=== PATIENT | male | born 1965 | race Hispanic/Latino ===

== ENCOUNTER → 2018-10-13 | Outpatient (CLI) | payer OTHER ==
[~2018-10-13] MED LIST: LIPITOR10 MG PO; NORCO 10-325 T1 EACH PO; OMEGA-31000 MG PO; RAPAFLO8 MG PO; VESICARE5 MG PO
--- NOTE | 2018-10-13 14:12 | Diagnostic Imaging Report ---
EXAM: CT Abdomen and Pelvis WITHOUT intravenous contrast INDICATION: Renal calculi COMPARISON: [facility] of 11/09/2012 TECHNIQUE: Abdomen and pelvis were scanned utilizing a multidetector helical scanner from the lung base to the pubic symphysis without administration of IV contrast. Coronal and sagittal reformations were obtained. IV CONTRAST: None ORAL CONTRAST: None COMPLICATIONS: None RADIATION DOSE: Total DLP: 835.6 mGy*cm Dose modulation, iterative reconstruction, and/or weight based adjustment of the mA/kV was utilized to reduce the radiation dose to as low as reasonably achievable. FINDINGS: LOWER THORAX: No focal lung base consolidation. The heart is not enlarged. HEPATOBILIARY: No solid mass lesions. The gallbladder appears unremarkable. SPLEEN: No splenomegaly. PANCREAS: No focal masses or ductal dilatation. ADRENALS: No adrenal nodules. KIDNEYS/URETERS: 6.3 mm left lower pole nonobstructive renal calculus. No hydronephrosis. No other renal or ureteral calculi identified. PELVIC ORGANS/BLADDER: No bladder calculi. PERITONEUM / RETROPERITONEUM: No free air or fluid. LYMPH NODES: No lymphadenopathy. VESSELS: Minimal atherosclerotic calcifications of the abdominal aorta. GI TRACT: Mild sigmoid colonic diverticulosis. No CT evidence of diverticulitis. No abnormal bowel wall thickening or bowel obstruction. Normal appendix. BONES AND SOFT TISSUES: No acute osseous injury. Mild degenerative changes of the lower lumbar spine. 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 IMPRESSION: Left lower pole nonobstructive 6.3 mm renal calculus. No hydronephrosis. Signed by: Eugene Benz MD on 10/13/2018 2:09 PM
== END ==
LOC: CT 13:20
PROVIDERS: ATTEND Urology
DX: N20.0 Calculus of kidney (principal)
CPT/HCPCS: 74176

== ENCOUNTER → 2018-10-24 | Day surgery (SDC) | payer OTHER ==
--- NOTE | 2018-10-23 15:22 | Diagnostic Imaging Report ---
Exam: [facility]UB - 2 views Clinical History: Renal calculi, preoperative Comparison: Abdomen and pelvis CT of 10/13/2018 Findings: 6 mm calcific density overlying the lower pole of left kidney corresponds with left lower pole renal calculus seen on the CT of 10/13/2018. No new radiograph with apparent renal calculi. Nonobstructive bowel gas pattern. No free air. Osseous structures appear unremarkable. Impression: 6 mm left lower pole renal calculus. Signed by: Eugene Benz MD on 10/23/2018 3:19 PM
[~2018-10-24] MED LIST changes: +ACETAMINOPHEN/CODEINE 300MG - 30MG TAB ONE; +CEFTRIAXONE SOD 1 GM/NS 50 ML 50 ML IV ONE; +DEXAMETHASONE SOD PHOS INJ 4 MG/ML VIAL ONE; +FENTANYL CITRATE/PF 100MCG/2 ML INJ ONE; +LIDOCAINE HCL 2% LOCAL INJ 5 ML SDV VIAL INJ ONE; +MIDAZOLAM HCL 2 MG/2 ML VIAL ONE; +ONDANSETRON HCL INJ 2MG/ML 2ML 2 MG/ML VIAL ONE; +PROPOFOL IV EMULSION 10 MG/ML 20 ML VIAL ONE; +SEVOFLURANE INHAL SOLN 250 ML PEN BTL ONE
--- OUTSIDE RECORDS SUMMARY | 2018-10-24 05:12 | XMS REPORT ---
Author Author [facility] Address Unknown Phone Unavailable Care Team Providers Care Implementation Project Coordinator Name Role Phone XIN MCDOWELL Unavailable Unavailable Problems This patient has no known problems. Allergies, Adverse Reactions, Alerts This patient has no known allergies or adverse reactions. Medications This patient has no known medications. Results Test Description Test Time Test Comments Text Results Atomic Results Result Comments ABDOMEN-1VIEW ([facility]) 2018-10-23 15:17:00 [place] [address] Patient Name: ROLANDO PUGH JR MR #: [id number] : 1965 Age/Sex: 52/M Req #: [id number] Adm Physician: Ordered by: XIN MCDOWELL MD Report #: [id number] Location: OR Room/Bed: Procedure: [id number] DX/ABDOMEN-1VIEW ([facility]) Exam Date: 10/23/18 Exam Time: 1414 REPORT STATUS: Signed Exam: KUB - 2 views Clinical History: Renal albin culi, preoperative Comparison: Abdomen and pelvis CT of 10/13/2018 Findings: 6 mm calcific density overlying the lower pole of left kidney corresponds with left lower pole renal calculus seen on the CT of 10/13/2018. No new radiograph with apparent renal calculi. Nonobstructive bowel gas pattern. No free air. Osseous structures appear unremarkable. Impression: 6 mm left lower pole renal calculus. Signed by: Juan Pablo Benz MD on 10/23/2018 3:19 PM Dictated By: JUAN PABLO BENZ MD 18 Transcribed By: BRIDGETTE on 10/23/181518 COPY TO: XIN MCDOWELL MD CT ABDOMEN/PELVIS WO 2018-10-13 14:04:00 [place] [id number] Patient Name: ROLANDO PUGH JR MR #: [id number] : 1965 Age/Sex: 52/M Req #: [id number] Adm Physician: Ordered by: XIN MCDOWLEL MD Report #: [id number] Location: CT Room/Bed: Procedure: [id number] CT/CT ABDOMEN/PELVIS WO Exam Date: 10/13/18 Exam Time: 1342 REPORT STATUS: Signed EXAM: CT Abdomen and Pelvis WITHOUT intravenous con trast INDICATION: Renal calculi COMPARISON: [facility] of 11/09/2012 TECHNIQUE: Abdomen and pelvis were scanned utilizing a multidetector helical scanner from the lung base to the pubic symphysis without administration of IV contrast. Coronal and sagittal reformations were obtained. IV CONTRAST: None ORAL CONTRAST: None COMPLICATIONS: None RADIATION DOSE: Total DLP: 835.6 mGy*cm Dose modulation, iterative reconstruction, and/or weight based adjustment of the mA/kV was utilized to reduce the radiation dose to as low as reasonably achievable. FINDINGS: LOWER THORAX: No focal lung base consolidation. The heart is not enlarged. HEPATOBILIARY: No solid mass lesions. The gallbladder appears unremarkable. SPLEEN: No splenomegaly. PANCREAS: No focal masses or ductal dilatation. ADRENALS: No adrenal nodules. KIDNEYS/URETERS: 6.3 mm left lower pole nonobstructive renal calculus. No hydronephrosis. No other renal or ureteral calculi identified. PELVIC ORGANS/BLADDER: No bladder calculi. PERITONEUM / RETROPERITONEUM: No free air or fluid. LYMPH NODES: No lymphadenopathy. VESSELS: Minimal atherosclerotic calcifications of the abdominal aorta. GI TRACT: Mild sigmoid colonic diverticulosis. No CT evidence of diverticulitis. No abnormal bowel wall thickening or bowel obstruction. Normal appendix. BONES AND SOFT TISSUES: No acute osseous injury. Mild degenerative changes of the lower lumbar spine. 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 IMPRESSION: Left lower pole nonobstructive 6.3 mm renal calculus. No hydronephrosis. Signed by: Juan Pablo Benz MD on 10/13/2018 2:09 PM Dictated By: JUAN PABLO BENZ MD 1409 Transcribed By: BRIDGETTE on 10/13/18 1402 COPY TO: XIN MCDOWELL MD
[2018-10-24 08:45] VITALS: BP 120/68
--- NOTE | 2018-10-26 18:27 | Operative Report ---
DATE OF PROCEDURE: 10/24/2018 SURGEON: Kole Castañeda MD PREOPERATIVE DIAGNOSIS: Left kidney stone. POSTOPERATIVE DIAGNOSIS: Left kidney stone. PROCEDURES: 1. Staged shock wave lithotripsy, left side. 2. Supervision of fluoroscopy. ANESTHESIA: General. ESTIMATED BLOOD LOSS: Minimal. COMPLICATIONS: None. INDICATIONS: Mr. Dupree is a 52-year-old male with a history of intermittently symptomatic left-sided kidney stone. He and I had a long discussion about alternatives, risks, and benefits of doing nothing, shock wave lithotripsy, ureteroscopy, percutaneous surgery, or open surgery. He voiced understanding of the options, alternatives, risks, and benefits, and elected to proceed. PROCEDURE IN DETAIL: After informed consent was obtained, the patient was taken to the operative suite, placed supine on the operative table, underwent general anesthesia by Anesthesia Service. A time-out was taken. Site was confirmed. Stone was localized in the X, Y and Z planes. Treatment was performed per the treatment report. The patient tolerated the procedure well and was transferred to the recovery room in excellent condition. Supervision of fluoroscopy: I was present for the entire procedure and supervised fluoroscopy. There was no radiologist present. Dosages per treatment report. Kole Castañeda MD ES/MODL /[id number] cc: Darren Weber MD
== END | disposition home or self-care (01) ==
LOC: OR 05:02
PROVIDERS: ATTEND Urology
DX: N20.0 Calculus of kidney (principal); N13.39 Other hydronephrosis; N20.1 Calculus of ureter; N40.1 Benign prostatic hyperplasia with lower urinary tract symptoms; R35.1 Nocturia; E29.1 Testicular hypofunction; G47.33 Obstructive sleep apnea (adult) (pediatric); I10 Essential (primary) hypertension; Z88.1 Allergy status to other antibiotic agents; F17.210 Nicotine dependence, cigarettes, uncomplicated; Z01.810 Encounter for preprocedural cardiovascular examination; Z68.41 Body mass index [BMI] 40.0-44.9, adult; Z84.1 Family history of disorders of kidney and ureter
CPT/HCPCS: 50590; 74018; 93005; J0696; J1100; J2001; J2250; J2405; J2704; J3010